=== PATIENT | female | born 1945 | race Caucasian/White ===

== ENCOUNTER 2018-09-19 09:13 | Inpatient (IN) | payer MEDICARE | END 2018-09-29 20:35 | LOC: EDH 09:13 → EDHIP 12:41 → 4CH 18:09 | DX: M86.9 Osteomyelitis, unspecified (principal); K68.12 Psoas muscle abscess; I96 Gangrene, not elsewhere classified; L03.116 Cellulitis of left lower limb; I73.9 Peripheral vascular disease, unspecified; L97.529 Non-pressure chronic ulcer of other part of left foot with unspecified severity; I99.8 Other disorder of circulatory system; I10 Essential (primary) hypertension; Z87.891 Personal history of nicotine dependence; F17.200 Nicotine dependence, unspecified, uncomplicated; I65.29 Occlusion and stenosis of unspecified carotid artery ==

== ENCOUNTER → 2018-11-14 | Outpatient (CLI) | payer MEDICARE ==
[~2018-11-14] MED LIST: AMLO10TA7 PO; BUPR-47 PO; GABA-531 PO; LISI-613 PO
== END | disposition home or self-care (01) ==
LOC: RAH 16:40
PROVIDERS: ATTEND Internal Medicine Critical Care Medicine
DX: S81.802D Unspecified open wound, left lower leg, subsequent encounter (principal); M86.8X6 Other osteomyelitis, lower leg; X58.XXXD Exposure to other specified factors, subsequent encounter; Z89.612 Acquired absence of left leg above knee
CPT/HCPCS: 73552